=== PATIENT | male | born 1955 | race African-American/Black ===

== ENCOUNTER 2024-11-01 13:39 | Outpatient (REF) | payer OTHER, SELFPAY ==
--- NOTE | 2024-11-01 13:46 | EMG_ITS ---
Chief complaint: 2 years of left lower extremity weakness, left footdrop. Chronic low back pain. Exam shows weakness on left knee and ankle, footdrop, edema on left lower extremity. Multiple areas with healed/old wounds/ulcers, bilateral shins. No new or open wounds. Reason for referral: Evaluate for neuropathy Referred by: Patient was referred for upper and lower extremities. However patient denies symptoms on upper extremities, patient deferred testing on upper extremities. He did allow me to test 1 nerve on right upper extremity for nerve conduction. Procedure done: Bilateral lower extremity NCS/EMG Precautions and/or limitations: Edema on left leg The limb temperature was monitored continuously and remained between 32-36 degrees C during the performance of the NCS. Nerve Conduction Studies Anti Sensory Summary Table ?Stim Site NR Onset (ms) Norm Onset (ms) Peak (ms) Norm Peak (ms) O-P Amp (?V) Norm O-P Amp Site1 Site2 Delta-0 (ms) Dist (cm) Jagdeep (m/s) Norm Jagdeep (m/s) Right Radial Anti Sensory (Thumb) Forearm ? 1.9 2.3 <3.1 12.3 Forearm Thumb 1.9 0.0 Left Sural Anti Sensory (Lat Mall) Calf ? 2.5 2.9 <4.0 8.1 >5.0 Calf Lat Mall 2.5 14.0 56 ? 2.4 3.0 12.6 Right Sural Anti Sensory (Lat Mall) Calf ? 3.4 4.0 <4.0 4.5 >5.0 Calf Lat Mall 3.4 14.0 41 ? 3.2 3.4 0.6 Motor Summary Table ?Stim Site NR Onset (ms) Norm Onset (ms) O-P Amp (mV) Norm O-P Amp iAmp (mV) Amp (1st) (%) Site1 Site2 Delta-0 (ms) Dist (cm) Jagdeep (m/s) Norm Jagdeep (m/s) Left Peroneal Motor (Ext Dig Brev) Ankle NR <4.0 >2.5 Ankle Ext Dig Brev 0.0 B Fib ? 12.1 0.6 0.8 B Fib Ankle 0.0 >40 Poplt ? 12.7 0.8 0.9 Poplt B Fib 0.6 0.0 >40 Left Tibial Motor (Abd Mustafa Brev) Ankle NR <5 >2.5 Ankle Abd Mustafa Brev 0.0 Right Tibial Motor (Abd Mustafa Brev) Ankle NR <5 >2.5 Ankle Abd Mustafa Brev 0.0 Knee NR Knee Ankle 0.0 >40 EMG ?Side Muscle Nerve Root Ins Act Fibs Psw Amp Dur Poly Recrt Int Pat Comment Right AbdHallucis MedPlantar S1-2 Nml Nml Nml Nml Nml 0 Nml Complete Right AntTibialis Dp Br Peron L4-5 Nml Nml Nml Nml Nml 0 Nml Complete Right PostTibialis Tibial L5, S1 Nml Nml Nml Nml Nml 0 Nml Complete Right MedGastroc Tibial S1-2 Nml Nml Nml Nml Nml 0 Nml Complete Right VastusMed Femoral L2-4 Nml Nml Nml Nml Nml 0 Nml Complete Left AbdHallucis MedPlantar S1-2 Nml Nml Nml Nml Nml 0 Nml Complete Left AntTibialis Dp Br Peron L4-5 Nml Nml Nml Nml Nml 0 Nml Complete Left PostTibialis Tibial L5, S1 Incr 1+ 1+ Nml Nml 0 Nml Complete Left MedGastroc Tibial S1-2 Nml Nml Nml Nml Nml 0 Nml Complete Left VastusMed Femoral L2-4 Nml Nml Nml Nml Nml 0 Nml Complete Paraspinal EMG ?Side Muscle Nerve Root Ins Act Fibs Psw Comment Right Lumbar Upper Rami Nml Nml Nml Right Lumbar Mid Rami Nml Nml Nml Right Lumbar Lower Rami Nml Nml Nml Left Lumbar Upper Rami Nml Nml Nml Left Lumbar Mid Rami Nml Nml Nml Left Lumbar Lower Rami Incr 1+ 1+ FINDINGS: Left peroneal nerve showed very small/absent response. Left tibial nerve showed absent response. Left sural nerve surprisingly was within normal. Right tibial nerve showed absent response. Right sural nerve showed normal peak latency but small amplitude. Right radial sensory nerve within normal. Concentric needle EMG was performed in selected muscles of the bilateral lower extremity and lumbar paraspinals. Study revealed signs of electric abnormalities as shown in the table above. Left posterior tibialis showed increased insertional activity, very small PSWs and fibrillations. Left lower lumbar paraspinals showed increased insertional activity, PSWs and fibrillations. IMPRESSION: 1. This is an abnormal study. 2. There is electrodiagnostic evidence for left L5-S1 radiculopathy. 3. Can not rule out an asymmetric peripheral neuropathy. CLINICAL COMMENT: Left L5-S1 radiculopathy can explain left lower extremity weakness and left footdrop. Can not rule out an asymmetric peripheral neuropathy. Thank you for your kind referral. Mami Pena MD, CRUZ Board Certified, [place] Board of Physical Medicine and Rehabilitation (ABPMR) Board Certified, [place] Board of Electrodiagnostic Medicine (ABEM) CODIN 14234 x 2 MTDD
--- OUTSIDE RECORDS SUMMARY | 2024-11-01 14:19 | XMS_ITS | Clinical Summary ---
Author Organization [facility] Address [address] [place] [address] Care Team Providers Care Buffing And Sueding Machine Operator Name Role Phone Cassius Salas MD Primary Care Provider [phone] Allergies No known active allergies Medications Medication Sig Dispensed Refills Start Date End Date Status carvedilol (COREG) 25 MG tablet 25 mg 2 (two) times a day with meals. 0 03/27/2015 Active lisinopril (PRINIVIL,ZESTRIL) tablet 40 mg Take 40 mg by mouth daily. 0 03/07/2015 Active metFORMIN (GLUCOPHAGE-XR) ER 24 hr tablet 500 mg Take 500 mg by mouth every morning with breakfast. 0 02/19/2015 Active atorvastatin (LIPITOR) tablet 80 mg Take 80 mg by mouth daily. 0 04/11/2015 Active aspirin EC 81 MG tablet Take 81 mg by mouth daily. 0 Active Steen 3 1000 MG CAPS Take 1,000 mg by mouth daily. 0 Active oxyCODONE-acetaminop hen (PERCOCET) 5-325 MG per tablet 1 tablet every 4 (four) hours as needed. 0 04/11/2015 Active CIALIS 20 MG tablet Take 20 mg by mouth daily as needed. 0 03/07/2015 Active Docusate Sodium (DSS) 100 MG CAPS Take 100 mg by mouth 2 (two) times a day as needed. 20 each 0 05/23/2015 Active enoxaparin (LOVENOX) 40 MG/0.4ML SOLN Inject 0.4 mL (40 mg total) under the skin daily. 14 Syringe 0 05/23/2015 Active HYDROmorphone (DILAUDID) 2 MG tablet Take 1 tablet (2 mg total) by mouth every 4 (four) hours as needed for pain. 30 tablet 0 05/23/2015 Active OxyCODONE HCl ER (OXYCONTIN) 10 MG T12A controlled release tablet Take 2 tablets (20 mg total) by mouth every 12 (twelve) hours. 30 tablet 0 05/23/2015 Active polyethylene glycol (MIRALAX) packet Take 17 g by mouth daily. 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 Social History Tobacco Use Types Packs/Day Years Used Date Smoking Tobacco: Former Alcohol Use Standard Drinks/Week Comments No 0 (1 standard drink = 0.6 oz pur e alcohol) Sex and Gender Information Value Date Recorded Sex Assigned at Not on file Gender Identity Not on file Sexual Orientation Not on file Last Filed Vital Signs Vital Sign Reading Time Taken Comments Blood Pressure 146/90 05/24/2015 7:00 AM EST Pulse 81 05/24/2015 7:00 AM EST Temperature 37.2 C (99 F) 05/24/2015 7:00 AM EST Respiratory Rate 18 05/24/2015 7:00 AM EST Oxygen Saturation 98% 05/24/2015 7:00 AM EST Inhaled Oxygen Concentration - - Weight 120.7 kg (266 lb) 05/23/2015 11:47 PM EST Height 180.3 cm (5' 11 ) 05/22/2015 2:31 PM EST Body Mass Index 37.1 05/22/2015 2:31 PM EST Plan of Treatment Health Maintenance Due Date Last Done Comments Hepatitis C Screening 1955 COVID-19 Vaccine (#1) 06/15/1956 Depression Screening 1967 Preventative Health Evaluation 12/16/1973 DTap / Tdap / Td (1 - Tdap) 12/16/1974 Colon Cancer Screening (Colonoscopy) 12/16/2000 Shingrix-Zoster Vaccine (1 of 2) 12/16/2005 Fall Risk Assessment 12/16/2020 Pneumococcal Vaccine (1 of 1 - PCV) 12/16/2020 Influenza Vaccine (#1) 2024 RSV Adult > 60+ Yrs or Pregn ant (1 - 1-dose 75+ series) 12/16/2030 Hepatitis B Vaccines Aged Out No long er eligible based on patient's age to complete this topic RSV Ped < 20 months Aged Out No longe r eligible based on patient's age to complete this topic Medical Devices Implanted Type Area Booker Device Identifier Shelf Expiration Date Model / Serial / Lot Surgiflo 6\Cs [facility] - [id number] - [id number] Implanted:Qty : 1 on 05/22/2015 by Wesley Chou MD at [facility] Location Hemostatic Agent Right: Knee [employer] 07/03/2016 [id number] / / [id number] Description:Mixed with 2ml o f Thrombin 5000 units. Component Patellar Lcs Complete Std+ Knee 3 Peg Rotate [facility] - [id number] - [id number] Implanted:Qty : 1 on 05/22/2015 by Wesley Chou MD at [facility] Location Right: Knee [employer] 07/20/2018 [id number] / / [id number] Advance Directives For more information, please contact: [phone] Latest Code Status on File Code Status Date Activated Date Inactivated Comments Full Code 05/22/2015 12:08 PM 05/24/2015 9:44 PM This code status was ascertained in the following way: discussion with patient. Care Teams Buffing And Sueding Machine Operator Relationship Specialty Start Date End Date Cassius Salas MD [address] [phone] PCP - General Internal Medicine 04/25/15
--- OUTSIDE RECORDS SUMMARY | 2024-11-01 14:19 | XMS_ITS | Clinical Summary ---
Author Organization [address] [facility] Address [address] [place] [address] Phone Care Team Providers Care Director Of Field Sales Name Role Phone Edin Lepe MD Primary Care Provider [phone] Allergies No known active allergies Medications acetaminophen-co deine (TYLENOL #4) 300-60 mg per tablet Active aspirin 81 mg EC tablet Take 81 mg by mouth daily. Active carvediloL (COREG) 12.5 mg tablet Take 1 tablet (12.5 mg total) by mouth 1 (one) time each day. 01/24/20 24 Active cyanocobalamin (VITAMIN B-12) 1,000 mcg tablet Take 1 tablet (1,000 mcg total) by mouth 1 (one) time each day. 06/25/19 23 Active folic acid (FOLVITE) 400 mcg tablet Take 1 tablet every day by oral route for 60 days. 12/09/19 23 Active hydroCHLOROthiaz jon 12.5 mg tablet Take 1 tablet (12.5 mg total) by mouth 1 (one) time each day. Active lisinopriL (PRINIVIL,ZESTRI L) 2.5 mg tablet Take 1 tablet (2.5 mg total) by mouth 1 (one) time each day. 09/26/19 23 Active methadone (METHADOSE) 40 mg dispersible tablet Take 100 mg by mouth daily. Active miconazole nitrate 2 % aerosol,spray Apply 1 Applicator topically daily. 09/24/19 23 Active mupirocin (BACTROBAN) 2 % ointment Active penicillin v potassium (VEETID) 500 mg tablet Active silver sulfADIAZINE (SILVADENE, SSD) 1 % cream Silvadene 1 % topical cream APPLY A 1/16 INCH (1.5 MM) THICK LAYER TO ENTIRE OPENAREA BY TOPICAL ROUTE 2 TIMES PER DAY Active atorvastatin (LIPITOR) 20 mg tablet TAKE ONE TABLET BY MOUTH ONCE DAILY 90 tablet 04/10/19 25 Active mirabegron (MYRBETRIQ) 25 mg 24 hr tablet Take 1 tablet (25 mg total) by mouth 1 (one) time each day. Active tamsulosin (FLOMAX) 0.4 mg 24 hr capsule Take 1 capsule (0.4 mg total) by mouth 1 (one) time each day. Capsules should be taken 30 minutes following the same meal each day. Active omega 9-pma-pay-fish oil (Fish OiL) 1,000 (120-180) mg capsule Take by mouth. Active multivitamin with iron-minerals 9 mg iron/15 mL liquid Take 15 mL by mouth 1 (one) time each day. Active aspirin-calcium carbonate (Women's Aspirin with Calcium) 81 mg-300 mg calcium(777 mg) tablet Take 1 tablet by mouth 1 (one) time each day. 10/24/19 21 025 Discontinued metoprolol tartrate (LOPRESSOR) 50 mg tablet TWO TIMES DAILY 025 Discontinued nitroglycerin (NITROSTAT) 0.4 mg SL tablet Take by mouth as needed. 06/04/19 13 025 Discontinued Active Problems Problem Noted Date Diagnosed Date Obesity 02/19/2022 Osteoarthritis 02/19/2022 Coronary artery disease 06/10/2020 Overview (02/25/2024): Last Assessment & Plan: Patient has no signs or symptoms of coronary insufficiency. He should continue aspirin therapy indefinitely. I did recommend statin therapy irrespective of LDL levels however the patient deferred. He will monitor for the development of symptoms and let us know if they occur. He will have his parent arthritic issues evaluated and treated. Once these have been managed then encourage the patient to engage in routine physical exercise and maintain a heart healthy diet. Hypertension 06/10/2020 Overview (02/25/2024): Last Assessment & Plan: Blood pressure is normal off antihypertensive therapy. He has had weight loss over the years which may have helped wean off the medicines. I noted that his most recent creatinine was 1.5. There is history of diabetes his blood pressure should be closely monitored. The patient is aware of this. Failed total knee, right ([facility] V24) 6 Encounters Date Type Department Care Team Description 10/24/2024 Telephone [facility] [address] [facility] [address] [place] [id number] Beck Hutchison NP No Call No Show (Letter sent) 10/19/2024 1:30 PM EDT Office Visit Orthopedic Surgery [facility] [address] [facility] [address] [place] [address] Naeem Machado DPM Primary osteoarthritis of both feet (Primary Dx); Posterior tibial tendinitis of right leg; Posterior tibial tendinitis of left leg; Hammer toe of left foot; Ulcer of toe of left foot, limited to breakdown of skin ([facility] V24, [facility] V28); Dermatophytosis of nail; Pain in toe of right foot; Pain in toe of left foot; Type II diabetes mellitus with peripheral circulatory disorder ([facility] V24, [facility] V28); Diabetic mononeuropathy simplex ([facility] V24, [facility] V28) 10/13/2024 Telephone Gastroenterology - [address] [facility] [address] [facility] [address] [place] [address] Cassia Sutton MD Special Procedure 08/15/2024 1:00 PM EDT Office Visit Orthopedic [facility] [address] [facility] [address] [place] [address] Naeem Machado DPM Hammer toe of left foot (Primary Dx); Primary osteoarthritis of both feet; Posterior tibial tendinitis of right leg; Posterior tibial tendinitis of left leg; Ulcer of toe of left foot, limited to breakdown of skin ([facility] V24, [facility] V28) from Last 3 Months Social History Tobacco Use Types Packs/Day Years Used Date Smoking Tobacco: Former Smokeless Tobacco: Never Alcohol Use Standard Drinks/Week Comments No 0 (1 standard drink = 0.6 oz pur e alcohol) Sex and Gender Information Value Date Recorded Sex Assigned at Not on file Legal Sex Male 10:00 AM EST Gender Identity Not on file Sexual Orientation Not on file Obstetrics History Last Filed Vital Signs Vital Sign Reading Time Taken Comments Blood Pressure 130/62 09/25/2022 1:03 PM EDT Sit ting R Arm Pulse 61 09/25/2022 1:03 PM EDT Temperature - - Respiratory Rate - - Oxygen Saturation - - Inhaled Oxygen Concentration - - Weight 101 kg (222 lb) 04/17/2024 11:29 AM EST Height 182.9 cm (6' 0.01 ) 04/17/2024 1 1:29 AM EST Body Mass Index 30.1 04/17/2024 11:29 AM EST Plan of Treatment Upcoming Encounters Date Type Department Care Team (Late st Contact Info) Description 12/19/2024 1:00 PM EDT Office Visit Orthopedic Surgery - [place] [address] [phone] Naeem Machado, DPM [address] [address] Health Maintenance Due Date Last Done Comments Diabetes: Annual GFR (Glomerular Filtration Rate) 1955 Diabetes: Annual Foot Exam 12/16/1965 Diabetes: Annual Retina Eye Exam 12/16/1965 Hepatitis A Vaccines (1 of 2 - Risk 2-dose series) 12/16/1974 Zoster Vaccines (1 of 2) 12/16/1974 RSV Immunization Adult Patients (1 - Risk 60-74 years 1-dose series) 2015 Pneumococcal Vaccine: 50+ Years (3 of 3 - PPSV23, PCV20 or PCV21) 03/26/2021 01/29/2021, 03/16/2014 Abdominal Aortic Aneurysm (AAA) Screen 03/03/2022 Cholesterol Screening (Lipid Panel) 03/03/2022 Colorectal Cancer Screening: Colonoscopy 03/03/2022 Falls Risk Assessment 03/03/2022 Hepatitis C Screening 03/03/2022 Medicare Annual Wellness Visit 03/03/2022 Social Influencers of Health Screening 03/03/2022 Hypertension/CHF/CAD Annual BMP Blood Test 03/21/2022 COVID-19 Vaccine (4 - 2023-2 5 season) 2023 04/18/2021, 08/04/2020, 07/14/2020 Depression Screening 04/05/2024 Diabetes: Annual Urine Albumin-Creatinine Ratio (uACR) 04/17/2024 Diabetes: Blood Sugar Contro l Test (HGBA1C) 04/17/2024 Influenza Vaccine (#1) 2024 2, 01/29/2021 DTaP,Tdap,and Td Vaccines (3 - Td or Tdap) 01/29/2031 01/29/2021, 08/20/2008 HIB Vaccines Aged Out No longer eligi ble based on patient's age to complete this topic HPV Vaccines Aged Out No longer eligi ble based on patient's age to complete this topic Hepatitis B Vaccines Aged Out No long er eligible based on patient's age to complete this topic IPV Vaccines Aged Out No longer eligi ble based on patient's age to complete this topic MMR Vaccines Aged Out No longer eligi ble based on patient's age to complete this topic Meningococcal ACWY Vaccine Aged Out N o longer eligible based on patient's age to complete this topic Meningococcal B Vaccine Aged Out No l onger eligible based on patient's age to complete this topic RSV Immunization Patients Under 20 months Aged Out No longer eligible b ased on patient's age to complete this topic Varicella Vaccines Aged Out No longer eligible based on patient's age to complete this topic Insurance [employer] MEDICARE ADVANTAGE Care Teams Director Of Field Sales Relationship Specialty [place] [address] [place] [phone] PCP - General 02/05/21
--- OUTSIDE RECORDS SUMMARY | 2024-11-01 14:19 | XMS_ITS | Clinical Summary ---
Author Organization [facility] Address [address] [place] [address] Care Team Providers Care Registered Radiologic Technologist Name Role Phone Pcp, No Primary Care Provider Unavailabl e Social History Tobacco Use Types Packs/Day Years Used Date Smoking Tobacco: Never Assessed Sex and Gender Information Value Date Recorded Sex Assigned at Male 04/27/2024 2:42 PM EST Legal Sex Male 12:38 AM EDT Gender Identity Male 04/27/2024 2:42 PM EST Sexual Orientation Heterosexual (straight) 04/27 2:42 PM EST Plan of Treatment Health Maintenance Due Date Last Done Comments Hepatitis C Virus Screening 1955 DTaP/Tdap/Td Vaccines (1 - Tdap) 12/16/1974 Pneumococcal Vaccines 50+ (1 of 2 - PCV) 12/16/1974 Colonoscopy 12/16/2000 Zoster (Shingles) Vaccine (1 of 2) 12/16/2005 COVID-19 Vaccine (2023-2 5 season) 2023 Influenza Vaccine 11/03/2024 RSV Vaccine 60 years and old er and Patients (1 - 1-dose 75+ series) 12/16/2030 Hepatitis B Vaccines Aged Out No long er eligible based on patient's age to complete this topic Insurance [employer] MEDICARE Care Teams Registered Radiologic Technologist Relationship Specialty Start Date End Date Pcp, No PCP - General 04/27/24
--- OUTSIDE RECORDS SUMMARY | 2024-11-01 14:19 | XMS_ITS ---
Author Name [facility] Organization Unknown Care Team Organization Name Specialty Phone Email Start Date End [facility] CHANA JACOBS, Primary Care 10/20/2022 10/21/19 23
== END 2024-11-01 13:40 | disposition home or self-care (01) ==
LOC: HO.US 13:39
PROVIDERS: PCP Family Medicine; Visit Provider Family Medicine
DX: R09.89 Other specified symptoms and signs involving the circulatory and respiratory systems (principal); G62.9 Polyneuropathy, unspecified
CPT/HCPCS: 95886; 95909

== ENCOUNTER → 2024-11-01 13:46 | Outpatient (BNV) | payer OTHER, SELFPAY | PROVIDERS: PCP Family Medicine; Visit Provider Physical Medicine & Rehabilitation | DX: M54.16 Radiculopathy, lumbar region (principal) | CPT/HCPCS: 95886; 95909 ==